=== PATIENT | female | born 1955 | race African-American/Black ===

== ENCOUNTER 2024-08-15 18:41 | Emergency (ER) | payer OTHER, MEDICAID, SELFPAY ==
[2024-08-15] VITALS (7 sets, daily range): BP systolic 126–157; BP diastolic 11–113; BMI 46.9
--- NOTE | 2024-08-15 22:08 | ED.GENMED ---
History of Present Illness
General
Chief Complaint: Change in Mental Status
Source: patient and jail
Time Seen by Provider: 08/15/24 18:56
History of Present Illness
History of Present Illness:
Patient sent to the emergency room from [facility] after she became agitated and flipped over a table. She was verbally abusive to staff. Patient has not been taking her medications for the past week. Patient states that she was confronted by a
person who 'hates her' and was going to fight her. She flipped over the table to protect herself. Patient does have a longstanding psychiatric history including schizophrenia.
Past History
Past History
ED Past Medical History: HTN, NIDDM (Prediabetes), Psychiatric (Schizophrenia) and Other (Osteoarthritis, obesity, tachycardia, thrombocytopenia, B12 deficiency anemia)
ED Past Surgical History: None
Patient has exhibited threatening behavior?: Yes
Date of threatening behavior? (updated with each occurrence): 01/02/23
Social History
Tobacco: Non-smoker
Alcohol: None
Personal: Single
Living: jail
Family History
Family History: Unable to obtain
Phy Exam
Physical Exam
Physical Exam:
General: Awake, Alert, Oriented X3. Disheveled in appearance
Vitals: unremarkable
Head: Atraumatic
Eyes: Pupils equal, EOMI
Throat: Airway intact, no exudates
Neck: Trachea midline
Lungs: Clear and equal b/l
Heart: Regular rate, no murmurs
Abd: Soft, Nontender, No pulsatile mass
Neuro: Nonfocal
Skin: Warm, dry, no rash
Extremities: pulses equal b/l, no edema
Course
Orders/Labs/Results
Orders:
Orders
08/15/24 22:06
Crisis Consult Routine
Reason for Consult: violent outburst at jail
Crisis Consult Urgent
Reason for Consult: hx of bipolar, schizophrenia - agression to staff at [facility]
08/15/24 22:10
Olanzapine [Zyprexa] 15 mg PO NOW STA
Vital Signs
Initial and Last Documented VS:
Initial Vital Signs
Pulse Resp BP Pulse Ox
133 24 139/113 100
08/15/24 18:44 08/15/24 18:44 08/15/24 18:44 08/15/24 18:44
Last Documented Vital Signs
Temp Pulse Resp BP Pulse Ox
97.6 F 87 18 146/88 98
08/15/24 18:46 08/16/24 03:13 08/16/24 03:13 08/16/24 03:13 08/16/24 03:13
MDM/Problems Addressed
MDM/Problems Addressed:
Patient refusing her medication. Zyprexa offered here but patient is refusing. [facility] contacted. I did speak with the patient but find no criteria for 302
Patient will be sent back to her jail as she is calm here.
*Pulse Oximetry
Patient hypoxic: no
*Critical Care Note
Total Time (30-74mins, 75-104mins- exclusive of procedures): Not Applicable
ED Attending Note
-
Portions of this chart may have been created with voice recognition software.� Occasional wrong word or��sound alike� substitutions may have occurred due to the inherent limitations of voice recognition software.
Discharge Plan
Departure
Patient Disposition: Halfway/SNF
Date of Disposition: 08/15/24
Time of Disposition: 23:00
Patient with high blood pressure during this ER visit?: Yes
Discharge Problem:
Schizoaffective disorder
Instructions: Schizoaffective disorder
Prescriptions:
No Action
polyethylene glycol 3350 17 gram Powder In Packet
17 g PO DAILYPRN PRN (Reason: constipation)
magnesium hydroxide [Milk of Magnesia] 400 mg/5 mL Suspension
30 ml PO [id number] PRN (Reason: if no bm x 3 days)
bisacodyl 10 mg Suppository
10 mg NV DAILYPRN PRN (Reason: if mom ineffective)
Fleet Enema 19-7 gram/118 mL Enema
118 ml NV DAILYPRN PRN (Reason: if dulcolax is ineffective )
acetaminophen [Tylenol] 325 mg Tablet
650 mg PO Q6HPRN PRN (Reason: mild pain/fever>100.4)
loperamide [Imodium A-D] 2 mg Capsule
2 mg PO Q8HPRN PRN (Reason: diarrhea)
ondansetron HCl [Zofran] 4 mg Tablet
4 mg PO Q8HPRN PRN (Reason: vomiting)
oxcarbazepine 300 mg Tablet
600 mg PO BID
fluphenazine HCl 2.5 mg/mL Solution
25 mg IM Q21D
divalproex 125 mg Tablet,Delayed Release (Dr/Ec)
250 mg PO TID
docusate sodium [Colace] 100 mg Capsule
100 mg PO DAILY
olanzapine 15 mg Tablet
15 mg PO BID
Referrals:
Darren El I., [Family Provider] -
Interventions
Interventions:
*Risk Screen - Suicide Last Done: 08/15/24 18:46
*General Assessment Last Done: 08/15/24 18:46
*Neglect/Abuse Screening Last Done: 08/15/24 18:46
*ED- Fall Risk Assessment Last Done: 08/15/24 18:46
*ED COVID-19 Vaccine History Last Done: 08/15/24 18:46
*Nursing Disposition Last Done: 08/16/24 03:13
ED- Pulmonary Assessment Last Done: 08/15/24 18:46
ED-Psychological Assessment Last Done: 08/15/24 18:46
ED- Neurological Assessment Last Done: 08/15/24 18:46
ED- Cardiac Assessment Last Done: 08/15/24 18:46
ED Swallowing Screen Last Done: 08/15/24 18:46
Discharge Date and Time
Discharge Date/Time: 08/16/24 03:14
Print Language: ESTONIAN
[2024-08-16] VITALS: BP 134/66
[2024-08-16 01:00] VITALS: BP 155/107
[2024-08-16 03:13] VITALS: BP 146/88
== END 2024-08-16 03:14 ==
LOC: EMR 18:41
PROVIDERS: EMERGENCY PHYSICIAN Emergency Medicine; FAMILY PHYSICIAN Internal Medicine
DX: F25.9 Schizoaffective disorder, unspecified (principal); I10 Essential (primary) hypertension; E11.9 Type 2 diabetes mellitus without complications; E66.9 Obesity, unspecified; F31.9 Bipolar disorder, unspecified; M19.90 Unspecified osteoarthritis, unspecified site; Z91.148 Patient's other noncompliance with medication regimen for other reason
CPT/HCPCS: 99285

== ENCOUNTER 2024-08-23 03:10 | Emergency (ER) | payer OTHER, SELFPAY ==
[2024-08-23 03:12] VITALS: BP 151/70; BMI 47.4
[2024-08-23 03:18] VITALS: BP 151/70
--- NOTE | 2024-08-23 03:28 | ED.GENMED ---
History of Present Illness
General
Chief Complaint: Abdominal Symptoms
Source: patient, ambulance crew and [facility]
Exam Limitations: none
Time Seen by Provider: 08/23/24 03:22
Nursing documentation reviewed up to this point in time: agreed with
History of Present Illness
History of Present Illness:
This is a 69-year-old woman who has history of schizoaffective disorder, hypertension, chronic resident of [facility]. She presents via EMS with complaints of nausea, vomiting, diarrhea that began 2 to 3 days ago. She denies abdominal
pain. She reports passing 3 loose stools over the past 24 hours. She denies hematemesis nor hematochezia. She has not had a fever nor chills. She denies close contacts with similar symptoms.
No recent antibiotic use.
She does admit to moderate dizziness, lightheadedness this morning but denies fall nor syncope.
She arrives via EMS, IV Zofran 4 mg given prehospital.
Records reviewed.
Patient evaluated in this ED August 15 after a brief confrontation with [facility] staff. Patient reportedly has been noncompliant with her medications. She was evaluated by [facility] and remained cooperative with ED staff. Discharged back
to [facility].
Past History
Past History
ED Past Medical History: HTN, NIDDM (Prediabetes), Psychiatric (Schizophrenia) and Other (Osteoarthritis, obesity, tachycardia, thrombocytopenia, B12 deficiency anemia)
ED Past Surgical History: None
Patient has exhibited threatening behavior?: Yes
Date of threatening behavior? (updated with each occurrence): 01/02/23
Social History
Tobacco: Non-smoker
Alcohol: None
Personal: Single
Living: [facility]
Family History
Family History: Unable to obtain
Phy Exam
Physical Exam
Physical Exam:
GENERAL: 69-year-old woman appears her stated age, awake and alert, oriented x 3. Mildly anxious, somewhat scattered/tangential thought processes but remains cooperative. Asking that we 'do not take her ' she is unsure where her is
and according to our records patient is single. According to [facility] records, next of kin is her brother.
EYE: pupils equal and reactive. anicteric
NECK: Supple, nontender, no meningismus, no significant adenopathy.
ENT: posterior pharynx is clear, oral mucosa is moderately dry. TM clear b/l, nares patent.
CARDIAC: Regular rhythm, mildly tachycardic. no murmur.
LUNGS: Clear breath sounds bilaterally, no acute respiratory distress, no wheezes/rales/rhonchi
ABDOMEN: Rotund, soft, nondistended, without focal tenderness, no r/g, normoactive BS.
NEUROLOGICAL: Alert and oriented x3, no focal neuro deficits.
SKIN: Warm and dry, normal color, skin intact. No rash.
MUSCULOSKELETAL: No C/C/E. peripheral pulses are full and equal b/l. No palpable tenderness.
PSYCH: Mildly anxious. Somewhat scattered/tangential thought processes but remains cooperative.
Course
Orders/Labs/Results
Orders:
Orders
08/23/24 03:21
Complete Blood Count/With Diff Urgent
Comprehensive Metabolic Panel Urgent
Lipase Urgent
08/23/24 04:42
Encourage PO Hydration-Treatme ONCE
08/23/24 05:47
Olanzapine [Zyprexa] 10 mg IM NOW STA
08/23/24 05:50
Sterile Water [Sterile Water For Injection] 10 ml .ROUTE .STK-MED ONE
Abnormal Lab Results
08/23/24
03:21
RBC 3.80 L 10^6/uL
(4.20-5.40)
Hgb 11.5 L g/dL
(12.0-16.0)
Hct 34.4 L %
(37.0-47.0)
MPV 11.3 H fL
(7.4-10.4)
Absolute Lymphs (auto) 0.6 L 10^3/uL
(1.2-3.4)
Neutrophils % 82.9 H %
(42.2-75.2)
Lymphocytes % 9.8 L %
(20.5-51.1)
Chloride 109 H mmol/L
(98-107)
Glucose 101 H mg/dl
(70-99)
08/23/24 03:21
08/23/24 03:21
Vital Signs
Initial and Last Documented VS:
Initial Vital Signs
Temp Pulse Resp BP Pulse Ox
98.0 F 105 18 151/70 100
08/23/24 03:12 08/23/24 03:12 08/23/24 03:12 08/23/24 03:12 08/23/24 03:12
Last Documented Vital Signs
Temp Pulse Resp BP Pulse Ox
98.0 F 99 18 142/68 98
08/23/24 03:12 08/23/24 05:00 08/23/24 05:00 08/23/24 05:00 08/23/24 05:00
MDM/Problems Addressed
Differential Diagnosis Includes:
Concern for acute gastroenteritis, other consideration of small bowel obstruction, colitis. Concern for dehydration, electrolyte abnormality.
IV fluids infusing. Nausea has resolved after IV Zofran.
Chronic conditions affecting care: HTN and Psychiatric illness
*Pulse Oximetry
Patient hypoxic: no
*Top Lift Nailer Interpretation
Rate: normal
Interpretation: normal
Rhythm: sinus
*Critical Care Note
Total Time (30-74mins, 75-104mins- exclusive of procedures): Not Applicable
Update Note
Update Note:
04:45
Labs are all unremarkable.
Patient remains well in appearance, happily watching TV.
Continues to deny abdominal pain and abdomen is soft without appreciable tenderness.
No episodes of vomiting or diarrhea since arrival to the ED.
Will trial oral fluids and if tolerating will plan to discharge back to [facility] with prescription for Zofran ODT for as needed nausea.
05:45
Patient refusing transfer back to [facility]. She states she does not trust the EMS transport personnel.
She has become somewhat cantankerous, agitated. She has had similar outbursts previously.
Apparently has been noncompliant with her medication.
Will give an IM dose of Zyprexa now.
Will plan for wheelchair van transport later this morning.
06:00
Patient accepted IM Zyprexa without a Phos.
She is hungry, except a box lunch.
Will continue to observe and will plan to arrange for transfer back to [facility] in approximately 1 to 2 hours.
ED Attending Note
-
Portions of this chart may have been created with voice recognition software.� Occasional wrong word or��sound alike� substitutions may have occurred due to the inherent limitations of voice recognition software.
Discharge Plan
Departure
Patient Disposition: Detention/SNF
Date of Disposition: 08/23/24
Time of Disposition: 05:04
Patient with high blood pressure during this ER visit?: No
Condition: Good
Discharge Problem:
Acute gastroenteritis
Instructions: Viral gastroenteritis in adults, Clear Liquid Diet
Prescriptions:
New
ondansetron 4 mg tablet,disintegrating
4 mg PO QID PRN (Reason: nausea and vomiting) Qty: 20 0RF
No Action
polyethylene glycol 3350 17 gram Powder In Packet
17 g PO DAILYPRN PRN (Reason: constipation)
magnesium hydroxide [Milk of Magnesia] 400 mg/5 mL Suspension
30 ml PO [id number] PRN (Reason: if no bm x 3 days)
bisacodyl 10 mg Suppository
10 mg SC DAILYPRN PRN (Reason: if mom ineffective)
Fleet Enema 19-7 gram/118 mL Enema
118 ml SC DAILYPRN PRN (Reason: if dulcolax is ineffective )
acetaminophen [Tylenol] 325 mg Tablet
650 mg PO Q6HPRN PRN (Reason: mild pain/fever>100.4)
loperamide [Imodium A-D] 2 mg Capsule
2 mg PO Q8HPRN PRN (Reason: diarrhea)
ondansetron HCl [Zofran] 4 mg Tablet
4 mg PO Q8HPRN PRN (Reason: vomiting)
oxcarbazepine 300 mg Tablet
600 mg PO BID
fluphenazine HCl 2.5 mg/mL Solution
25 mg IM Q21D
divalproex 125 mg Tablet,Delayed Release (Dr/Ec)
250 mg PO TID
docusate sodium [Colace] 100 mg Capsule
100 mg PO DAILY
olanzapine 15 mg Tablet
15 mg PO BID
Referrals:
Felipe Norman, [Family Provider] - Call in 1-3 days for appt
Interventions
Interventions:
*Risk Screen - Suicide Last Done: 08/23/24 03:12
*General Assessment Last Done: 08/23/24 03:12
*Neglect/Abuse Screening Last Done: 08/23/24 03:12
*ED- Fall Risk Assessment Last Done: 08/23/24 03:12
PR-Tkwrhw-Wvefcmbuwe Assessment Last Done: 08/23/24 03:50
Discharge Date and Time
Print Language: PERSIAN
[2024-08-23 03:32] LABS: % Basophils 0.2 % (0-2); % Lymphocytes 9.8 % (20.5-51.1); % Monocytes 7.1 % (1.7-9.3); % Neutrophils 82.9 % (42.2-75.2); Absolute Lymphocytes 0.6 10^3/uL (1.2-3.4); Absolute Monocytes 0.5 10^3/uL (0.1-0.6); Absolute Neutrophils 5.4 10^3/uL (1.4-6.5); Hematocrit 34.4 % (37.0-47.0); Hemoglobin 11.5 g/dL (12.0-16.0); Mean Corp Hgb Conc. 33.4 g/dL (33.0-37.0); Mean Corpuscular Hgb 30.3 pg (27.0-31.0); Mean Corpuscular Volume 90.5 fL (81.0-99.0); Mean Platelet Volume 11.3 fL (7.4-10.4); Nucleated Red Blood Cells % 0 %; Platelet Count 152 10^3/uL (130-400); Red Cell Dist. Width 14.5 % (11.5-14.5); White Blood Cell Count 6.5 10^3/uL (4.8-10.8)
[2024-08-23 03:55] LABS: ALT (SGPT) 12 U/L (0-35); AST (SGOT) 22 U/L (14-36); Albumin 3.5 g/dl (3.5-5.0); Alkaline Phosphatase 84 U/L (38-126); Blood Urea Nitrogen 17 mg/dl (7-17); Calcium 8.8 mg/dl (8.4-10.2); Carbon Dioxide 26 mmol/L (22-30); Chloride 109 mmol/L (98-107); Estimated Creatinine Clearance 84 ml/min; Glucose 101 mg/dl (70-99); Lipase 57 U/L (23-300); Potassium 4.7 mmol/L (3.5-5.1); Sodium 142 mmol/L (135-145); Total Bilirubin 0.6 mg/dl (0.2-1.3); Total Protein 6.6 g/dl (6.3-8.2); eGFR > 60.00
[2024-08-23 04:00] VITALS: BP 142/62
[2024-08-23 05:00] VITALS: BP 142/68
[2024-08-23] MEDS: ZYPREXA 10 MG IM (05:54)
--- NOTE | 2024-08-23 05:55 | EDRN ---
Transport got here to take patient back to jail, she started yelling that she doesn't trust the transport team and refusing to go with them, them starts screaming about homosexuals and that we are all going to hell. Dr. Kim at bedside
trying to redirect patient and see if she would go with transport, she is refusing and continues to yell, squad left, Dr. Kim said can try transport later, medication ordered to help calm patient down, patient did allow us to medicate her, patient
provided with turkey sandwich and call john and tv put on for patient.
[2024-08-23 08:00] VITALS: BP 124/71
== END 2024-08-23 09:34 ==
LOC: EMR 03:10
PROVIDERS: EMERGENCY PHYSICIAN Emergency Medicine; FAMILY PHYSICIAN Internal Medicine
DX: K52.9 Noninfective gastroenteritis and colitis, unspecified (principal); R45.1 Restlessness and agitation; E11.9 Type 2 diabetes mellitus without complications; I10 Essential (primary) hypertension; F25.9 Schizoaffective disorder, unspecified; Z91.148 Patient's other noncompliance with medication regimen for other reason
CPT/HCPCS: 99284; 96372; 80053; 83690; 85025; J2358